=== PATIENT | male | born 1990 | race Two or more races ===

== ENCOUNTER 2017-10-05 08:38 | Emergency (ER) | payer OTHER ==
[~2017-10-05] VITALS: Ht 167.6 cm; Wt 68.0 kg
--- NOTE | 2017-10-05 08:39 | NUR ---
SHARA FROM [facility] WITNESSED SEIZURE. NO TRAUMA NOTED. PATIENT IS AAO4. APPEARS IN NO APPARENT DISTRESS. RESPIRATION EVEN AND UNLABORED. PATIENT IS AFEBRILE. VSS. PT WITH HX OF SEIZURE. PENDING MD REAGAN
[2017-10-05] MEDS ORDERED: LEVETIRACETAM (250 MG) 250 MG TABLET PO ONE ×2 (09:00→09:05)
[2017-10-05] MEDS ORDERED: ACETAMINOPHEN ES 500 MG TABLET PO ONE (09:00)
[2017-10-05] MEDS ORDERED: LORAZEPAM 1 MG TABLET PO ONE (09:00)
[2017-10-05] MEDS ORDERED: LORAZEPAM 1 MG TABLET ONE (09:04)
[2017-10-05] MEDS ORDERED: ACETAMINOPHEN ES 500 MG TABLET ONE (09:04)
[2017-10-05] MEDS ORDERED: LORAZEPAM INJ 2 MG/ML VIAL ONE (09:41)
--- NOTE | 2017-10-05 09:44 | NUR ---
PATIENT HAD EPISODE OF SEIZURE. MD HALEY AWARE.
[2017-10-05 09:50] LABS: CALCIUM, SERUM 8.2 mg/dL (8.5-10.1)
[2017-10-05 09:51] LABS: CREATININE 0.8 mg/dL (0.6-1.3)
[2017-10-05] MEDS ORDERED: LORAZEPAM INJ 2 MG/ML VIAL IV ONE (10:00)
[2017-10-05 11:58] VITALS: BP 112/78
--- NOTE | 2017-10-05 11:58 | NUR ---
Patient discharged to home in stable condition. Written and verbal after care instructions given. Patient verbalizes understanding of instruction.
== END 2017-10-05 11:59 ==
LOC: ER 08:42
DX: R56.9 Unspecified convulsions (principal); F19.10 Other psychoactive substance abuse, uncomplicated
CPT/HCPCS: 36415; 80048; 96374; 99284; A4606; J2060; Z7610

== ENCOUNTER 2020-06-26 12:40 | Emergency (ER) | payer OTHER, MEDICAID ==
[~2020-06-26] VITALS: Ht 167.6 cm; Wt 64.9 kg
--- NOTE | 2020-06-26 13:00 | NUR ---
[id number], IN CUSTODY. HERE FOR NOTED SEIZURE LIKE ACTIVITY. BG 54 GEAR CHANGER. ORAL GLUCOSE GIVEN. PT STS "HEROIN WIDRAWAL. PATIENT A/OX4, BREATHING EVEN AND UNLABORED, NO SOB NOTED, NEEDS ATTENDED.
--- NOTE | 2020-06-26 14:53 | NUR ---
patient requested to use the restroom, patient given a cup for urine sample, PD supervised patient.
[2020-06-26] MEDS: IV NS 0.9% 1,000 ML IV ONE (15:13)
[2020-06-26 15:15] LABS: BASOPHILS # (AUTO) 0.1 /CMM (0.0-0.2); BASOPHILS % (AUTO) 0.7 % (0.0-2.0); EOSINOPHILS % (AUTO) 1.2 % (0.0-6.0); HEMATOCRIT 43 % (39-51); HEMOGLOBIN 14.4 g/dL (13.5-17.5); LYMPHOCYTES # (AUTO) 2.6 /CMM (0.8-4.8); MEAN CORPUSCULAR HGB CONC 33 g/dl (31.0-36.0); MEAN CORPUSCULAR VOLUME 90 fL (80-96); NEUTROPHILS # (AUTO) 7.1 /CMM (1.8-8.9); NEUTROPHILS % (AUTO) 65.1 % (43.0-81.0); PLATELET COUNT (AUTO) 292 /CMM (150-450); RED BLOOD CELL COUNT(AUTO) 4.79 MIL/uL (4.5-6.0)
[2020-06-26 15:24] LABS: CALCIUM, SERUM 8.9 mg/dL (8.5-10.1); CARBON DIOXIDE 26 mmol/L (21-32); CHLORIDE 102 mmol/L (98-107); CREATININE 0.8 mg/dL (0.6-1.3); GLUCOSE 81 mg/dL (74-106); POTASSIUM 3.7 mmol/L (3.5-5.1); SODIUM SERUM 137 mmol/L (136-145); UREA NITROGEN, BLOOD 11 mg/dL (7-18)
[2020-06-26 15:54] LABS: ALCOHOL, BLOOD < 3 mg/dL (0-0)
[2020-06-26] MEDS ORDERED: LORAZEPAM 1 MG TABLET ONE (16:03)
[2020-06-26] MEDS: LORAZEPAM 1 MG TABLET PO ONE (16:05)
--- NOTE | 2020-06-26 17:16 | NUR ---
IV removed. Catheter intact and site benign. Pressure and 4x4 applied to site. No bleeding noted. [facility] Written and verbal after care instructions given. Officer verbalizes understanding of instruction.
[2020-06-26 17:21] VITALS: BP 114/57
== END 2020-06-26 17:22 ==
LOC: ER 14:48
DX: F13.239 Sedative, hypnotic or anxiolytic dependence with withdrawal, unspecified (principal); F11.23 Opioid dependence with withdrawal; F41.9 Anxiety disorder, unspecified; E86.0 Dehydration
CPT/HCPCS: 36415; 71045; 80048; 80305; 80307; 85025; 93005; 96360; 99285; J7030; G0480

== ENCOUNTER 2020-07-29 17:26 | Emergency (ER) | payer MEDICAID, OTHER ==
[~2020-07-29] VITALS: Ht 167.6 cm; Wt 64.9 kg
[2020-07-29 17:30] VITALS: BP 120/80
--- NOTE | 2020-07-29 18:14 | NUR ---
Patient discharged in [employer] custody in stable condition. Written and verbal after care instructions given. Patient verbalizes understanding of instruction.
== END 2020-07-29 18:27 ==
LOC: ER 17:28
DX: F13.239 Sedative, hypnotic or anxiolytic dependence with withdrawal, unspecified (principal); F11.23 Opioid dependence with withdrawal; R19.7 Diarrhea, unspecified; R11.10 Vomiting, unspecified; Z02.89 Encounter for other administrative examinations

== ENCOUNTER 2020-08-02 08:08 | Emergency (ER) | payer OTHER, MEDICAID ==
[~2020-08-02] VITALS: Ht 170.2 cm; Wt 68.0 kg
[2020-08-02] MEDS ORDERED: LORAZEPAM INJ 2 MG/ML VIAL ONE (08:24)
[2020-08-02] MEDS ORDERED: LORAZEPAM INJ 2 MG/ML VIAL IVP ONE (08:30)
[2020-08-02] MEDS ORDERED: IV NS 0.9% 1,000 ML BAG IV ONE (08:30)
--- NOTE | 2020-08-02 08:42 | NUR ---
PATIENT WHEELED OUT VIA GURNEY FOR CT SCAN
[2020-08-02 08:51] LABS: BASOPHILS # (AUTO) 0.1 /CMM (0.0-0.2); BASOPHILS % (AUTO) 0.7 % (0.0-2.0); EOSINOPHILS % (AUTO) 0.5 % (0.0-6.0); HEMATOCRIT 46 % (39-51); HEMOGLOBIN 15.3 g/dL (13.5-17.5); LYMPHOCYTES # (AUTO) 1.7 /CMM (0.8-4.8); MEAN CORPUSCULAR HGB CONC 33 g/dl (31.0-36.0); MEAN CORPUSCULAR VOLUME 90 fL (80-96); MONOCYTES # (AUTO) 0.8 /CMM (0.1-1.30); MONOCYTES % (AUTO) 5.9 % (2.0-12.0); NEUTROPHILS # (AUTO) 11.5 /CMM (1.8-8.9); NEUTROPHILS % (AUTO) 80.9 % (43.0-81.0); PLATELET COUNT (AUTO) 274 /CMM (150-450); RED BLOOD CELL COUNT(AUTO) 5.17 MIL/uL (4.5-6.0); WHITE BLOOD COUNT (AUTO) 14.2 K/uL (4.3-11.0)
[2020-08-02 09:05] LABS: CALCIUM, SERUM 9.1 mg/dL (8.5-10.1); CARBON DIOXIDE 29 mmol/L (21-32); CHLORIDE 96 mmol/L (98-107); CREATININE 0.7 mg/dL (0.6-1.3); GLUCOSE 77 mg/dL (74-106); POTASSIUM 4.4 mmol/L (3.5-5.1); SODIUM SERUM 133 mmol/L (136-145); UREA NITROGEN, BLOOD 10 mg/dL (7-18)
[2020-08-02 09:10] LABS: ALANINE AMINOTRANSFERASE 18 U/L (12-78); ALBUMIN 4.3 g/dL (3.4-5.0); ALCOHOL, BLOOD < 3 mg/dL (0-0); ALKALINE PHOSPHATASE 60 U/L (46-116); ASPARTATE AMINOTRANSFERASE 18 U/L (15-37); BILIRUBIN,TOTAL 0.1 mg/dL (0.2-1.0); TOTAL PROTEIN, SERUM 8.3 g/dL (6.4-8.2)
--- NOTE | 2020-08-02 11:41 | NUR ---
IV removed. Catheter intact and site benign. Pressure and 4x4 applied to site. No bleeding noted.Patient discharged in custody in stable condition. Written and verbal after care instructions given. Patient and officers verbalizes understanding of instruction.
--- NOTE | 2020-08-02 11:48 | NUR ---
PATIENT A/OX4, BREATHING EVEN AND UNLABORED, NO SOB NOTED, NEEDS ATTENDED. IV removed. Catheter intact and site benign. Pressure and 4x4 applied to site. No bleeding noted. Patient discharged to PD in stable condition. Written and verbal after care instructions given. Patient verbalizes understanding of instruction.
[2020-08-02 11:51] VITALS: BP 124/69
== END 2020-08-02 11:52 ==
LOC: ER 08:12
DX: R56.9 Unspecified convulsions (principal); F13.239 Sedative, hypnotic or anxiolytic dependence with withdrawal, unspecified; R51.9 Headache, unspecified; Z02.89 Encounter for other administrative examinations
CPT/HCPCS: 36415; 70450; 80048; 80076; 80307; 80320; 85025; 93005; 96361; 96374; 99285; J2060; J7030; G0480